=== PATIENT | female | born 1965 | race African-American/Black ===

== ENCOUNTER 2017-02-26 14:19 | Emergency (ER) | payer MEDICAID ==
[~2017-02-26] VITALS: Ht 170.2 cm; Wt 118.0 kg
[~2017-02-26 14:19] MED LIST: ALBU18HF2 IH; AMLO10TA80 PO; ASPI-518 PO; ATOR80TA76 PO; B50 PO; CINA30 PO; DOCU-138 PO; GABA-529 PO; HYDR-523 PO; HYDR100T26 PO; OMEP40CA34 PO; PREG50CA PO; RANI150T7 PO; SEVE800T PO; WARF1TAB46 PO
[2017-02-26] MEDS ORDERED: MAGNESIUM/ALUMINUM HYDROXIDE/SIMETHICONE 30ML UDC PO STA (15:12)
[2017-02-26] MEDS ORDERED: FAMOTIDINE 20MG TABLET PO STA (15:12)
[2017-02-26] MEDS ORDERED: KETOROLAC 30MG/ML VIAL IM ONE (15:15)
[2017-02-26] MEDS ORDERED: MORPHINE SULFATE 10 MG/ML CPJ IM ONE (15:15)
[2017-02-26 15:38] LABS: CHLORIDE 98 mEq/L (98-107)
[2017-02-26 15:39] LABS: BASOPHILS % 0.9 % (0.0-2.0); EOSINOPHILS % 3.8 % (0.0-5.0); HEMATOCRIT. 30.8 % (36.0-48.0); HEMOGLOBIN. 9.8 g/dL (12.0-16.0); LYMPHOCYTES % 16.8 % (20.0-50.0); MEAN CORPUSCULAR HEMOGLOBIN 21.8 pg (28.0-32.0); MEAN CORPUSCULAR VOLUME 68.7 fL (81.0-99.0); MONOCYTES % 8.9 % (2.0-8.0); NEUTROPHILS % 69.6 % (40.0-76.0); PLATELET 294 x1000/uL (130-400); RED BLOOD CELL COUNT 4.48 mill/uL (4.2-5.4); RED CELL DISTRIBUTION WIDTH 18.9 % (11.6-14.6)
[2017-02-26 15:40] LABS: INR 1.9; PROTHROMBIN TIME 19.3 sec
[2017-02-26 15:48] LABS: CARBON DIOXIDE 31 mEq/L (21-32)
[2017-02-26 15:50] LABS: HCG SCREEN NEGATIVE
[2017-02-26 15:51] LABS: TROPONIN I 0.06 ng/mL (0.00-0.04)
[2017-02-26 16:41] LABS: PLATELET ESTIMATE NORMAL
[2017-02-26] MEDS ORDERED: DIPHENHYDRAMINE 50MG/ML VIAL IV ONE ×2 (17:15→18:00)
[2017-02-26] MEDS ORDERED: LIDOCAINE HCL 1% 20ML VIAL (Pyxis) INJ ONE (17:51)
[2017-02-26] MEDS ORDERED: HEPARIN 1000 UNITS/ML 10ML ONE (17:51)
[2017-02-26] MEDS ORDERED: SODIUM BICARBONATE 4% (2.4MEQ) 5ML VIAL IV ONE (17:52)
[2017-02-26] MEDS ORDERED: DIPHENHYDRAMINE 50MG/ML VIAL ONE (18:04)
[2017-02-26] MEDS ORDERED: ONDANSETRON HCL 4MG/2ML VIAL IV ONE (19:00)
[2017-02-26] MEDS ORDERED: MORPHINE SULFATE 4 MG/ML CPJ (NOT FOR IM USE) IV ONE (19:00)
[2017-02-26 20:50] VITALS: BP 138/80
== END 2017-02-26 20:50 | disposition home or self-care (01) ==
LOC: ER 14:19
DX: R07.89 Other chest pain (principal); T80.90XA Unspecified complication following infusion and therapeutic injection, initial encounter; N18.6 End stage renal disease; I11.9 Hypertensive heart disease without heart failure; Z79.899 Other long term (current) drug therapy
CPT/HCPCS: 36415; 36580; 71010; 80053; 83690; 83880; 84443; 84484; 84703; 85025; 85610; 85730; 93005; 96372; 96374; 96375; 99285; C1752; J1200; J1644; J1885; J2270; J2405; J3490; Z7610

== ENCOUNTER 2017-06-23 23:41 | Inpatient (IN) | payer MEDICARE ==
[~2017-06-23] VITALS: Ht 171.4 cm; Wt 120.2 kg
[~2017-06-23 23:41] MED LIST changes: -AMLO10TA80 PO; +AMLO2.5T45 PO; -ASPI-518 PO; -ATOR80TA76 PO; -PREG50CA PO; -RANI150T7 PO; +REN800 PO; -SEVE800T PO
[2017-06-24] VITALS (13 sets, daily range): BP systolic 110–165; BP diastolic 58–109
[2017-06-24] MEDS ORDERED: ONDANSETRON HCL 4MG/2ML VIAL IV STA (00:13)
[2017-06-24] MEDS ORDERED: MORPHINE SULFATE 4 MG/ML CPJ (NOT FOR IM USE) IV STA (00:13)
[2017-06-24 00:34] LABS: HEMATOCRIT. 33.1 % (36.0-48.0); HEMOGLOBIN. 10.5 g/dL (12.0-16.0); MEAN CORPUSCULAR HEMOGLOBIN 20.9 pg (28.0-32.0); MEAN CORPUSCULAR VOLUME 66.1 fL (81.0-99.0); MEAN PLATELET VOLUME 9.5 fl (7.4-10.4); PLATELET 241 x1000/uL (130-400); RED BLOOD CELL COUNT 5.01 mill/uL (4.2-5.4); RED CELL DISTRIBUTION WIDTH 18.9 % (11.6-14.6)
[2017-06-24 00:41] LABS: INR 1.1; PARTIAL THROMBOPLASTIN TIME 26.6 sec (23.4-31.0)
[2017-06-24 00:44] LABS: CARBON DIOXIDE 25 mEq/L (21-32); CHLORIDE 100 mEq/L (98-107); TROPONIN I 0.04 ng/mL (0.00-0.04)
[2017-06-24 01:02] LABS: NUCLEATED RED BLOOD CELLS 2 /100 WBC; PLATELET ESTIMATE NORMAL
[2017-06-24] MEDS ORDERED: DIPHENHYDRAMINE 50MG/ML VIAL IV ONE ×3 (02:00→14:15)
[2017-06-24] MEDS ORDERED: ONDANSETRON HCL 4MG/2ML VIAL IV ONE (04:00)
[2017-06-24] MEDS ORDERED: MORPHINE SULFATE 4 MG/ML CPJ (NOT FOR IM USE) IV ONE (04:00)
[2017-06-24] MEDS ORDERED: AMLODIPINE 5MG TABLET PO SCH (09:15)
[2017-06-24] MEDS: DOCUSATE SODIUM 100MG CAPSULE PO SCH ×2 (09:15→16:09)
[2017-06-24] MEDS ORDERED: IPRATROPIUM/ALBUTEROL 0.5-3(2.5)MG/3ML NEB INH PRN (09:15)
[2017-06-24] MEDS ORDERED: DIPHENHYDRAMINE 50MG CAPSULE PO PRN (09:15)
[2017-06-24] MEDS ORDERED: HYDROCODONE/ACETAMINOPHEN 5/325MG TABLET PO PRN (09:15)
[2017-06-24] MEDS: CINACALCET HCL 60MG TABLET PO SCH ×2 (09:56→19:24)
[2017-06-24] MEDS: HYDROCODONE/APAP 7.5/325MG 1 TAB TABLET PO PRN ×2 (09:58→16:33)
[2017-06-24] MEDS ORDERED: SODIUM BICARBONATE 4% (2.4MEQ) 5ML VIAL IV ONE (12:59)
[2017-06-24] MEDS ORDERED: LIDOCAINE HCL 1% 20ML VIAL (Pyxis) INJ ONE ×2 (12:59→14:15)
[2017-06-24] MEDS ORDERED: CEFAZOLIN 1000MG PREMIX 50 ML IV ONE ×2 (12:59→13:00)
[2017-06-24] MEDS: HYDRALAZINE HCL 100MG TABLET PO SCH ×2 (13:09→21:36)
[2017-06-24] MEDS ORDERED: FENTANYL CITRATE/PF 50MCG/ML 2ML VIAL ONE (14:00)
[2017-06-24] MEDS ORDERED: DIPHENHYDRAMINE 50MG/ML VIAL ONE (14:09)
[2017-06-24] MEDS ORDERED: FENTANYL CITRATE/PF 50MCG/ML 2ML VIAL IV ONE (14:30)
[2017-06-24] MEDS ORDERED: IOHEXOL-300 50 ML BOTTLE IV ONE (14:36)
[2017-06-24] MEDS ORDERED: HEPARIN SODIUM 1,000 UNIT/1ML VIAL IV SCH (17:45)
[2017-06-24] MEDS ORDERED: SEVELAMER CARBONATE 800 MG TABLET PO SCH (17:50)
[2017-06-24] MEDS ORDERED: WARFARIN SODIUM 5MG TABLET PO SCH (18:00)
[2017-06-24 19:09] LABS: CREATINE KINASE MB FRACTION 1.2 ng/mL (0.5-3.6); TROPONIN I 0.04 ng/mL (0.00-0.04)
[2017-06-24] MEDS ORDERED: GABAPENTIN 300MG CAPSULE PO SCH (21:00)
[2017-06-25] MEDS ORDERED: SEVELAMER CARBONATE 800 MG TABLET PO SCH (13:30)
== END 2017-06-24 22:45 | disposition short-term general hospital (02) | DRG 167 ==
LOC: ER 23:52 → 6WST 06-24 03:37 → ENRESERV 06-24 04:11 → CANRESERV 06-24 04:11 → ENRESERV 06-24 04:38
PROVIDERS: ADMIT Internal Medicine; ATTEND Internal Medicine
PROC: 02HV33Z Insertion of Infusion Device into Superior Vena Cava, Percutaneous Approach (ICD-10-PCS; principal; 2017-06-24)
PROC: 02PY33Z Removal of Infusion Device from Great Vessel, Percutaneous Approach (ICD-10-PCS; principal; 2017-06-24)
DX: T82.41XA Breakdown (mechanical) of vascular dialysis catheter, initial encounter (principal); I13.2 Hypertensive heart and chronic kidney disease with heart failure and with stage 5 chronic kidney disease, or end stage renal disease; J96.10 Chronic respiratory failure, unspecified whether with hypoxia or hypercapnia; N18.6 End stage renal disease; E11.22 Type 2 diabetes mellitus with diabetic chronic kidney disease; F17.200 Nicotine dependence, unspecified, uncomplicated; I25.10 Atherosclerotic heart disease of native coronary artery without angina pectoris; E66.9 Obesity, unspecified; I27.82 Chronic pulmonary embolism; M19.90 Unspecified osteoarthritis, unspecified site; I50.9 Heart failure, unspecified; J44.9 Chronic obstructive pulmonary disease, unspecified; Y71.2 Prosthetic and other implants, materials and accessory cardiovascular devices associated with adverse incidents; Z82.49 Family history of ischemic heart disease and other diseases of the circulatory system; Z83.3 Family history of diabetes mellitus; Z90.81 Acquired absence of spleen; Z99.2 Dependence on renal dialysis; I25.2 Old myocardial infarction; Z79.01 Long term (current) use of anticoagulants
CPT/HCPCS: 36415; 36581; 71010; 75827; 76937; 77001; 80053; 82550; 82553; 83605; 84484; 85025; 85610; 85730; 93005; 96374; 96375; 99285; C1750; C1769; C1893; J0690; J1200; J1642; J1644; J2270; J2405; J3010; J3490; J7030; Q0163; Q9967

== ENCOUNTER 2017-11-01 14:08 | Emergency (ER) | payer MEDICARE ==
[~2017-11-01] VITALS: Ht 165.1 cm; Wt 110.0 kg
[~2017-11-01 14:08] MED LIST changes: -ALBU18HF2 IH
[2017-11-01 15:15] VITALS: BP 159/79
[2017-11-01] MEDS: TRAMADOL 50MG TABLET PO ONE ×2 (15:15→16:04)
== END 2017-11-01 17:16 | disposition home or self-care (01) ==
LOC: ER 14:08
DX: S40.211A Abrasion of right shoulder, initial encounter (principal); S80.212A Abrasion, left knee, initial encounter; S60.812A Abrasion of left wrist, initial encounter; F17.200 Nicotine dependence, unspecified, uncomplicated; J44.9 Chronic obstructive pulmonary disease, unspecified; Z86.718 Personal history of other venous thrombosis and embolism; Z79.01 Long term (current) use of anticoagulants; Z90.81 Acquired absence of spleen; W10.8XXA Fall (on) (from) other stairs and steps, initial encounter; Y93.89 Activity, other specified; Y92.018 Other place in single-family (private) house as the place of occurrence of the external cause
CPT/HCPCS: 29125; 73030; 73110; 73562; 99284

== ENCOUNTER 2017-12-05 14:08 | Emergency (ER) | payer MEDICARE ==
[~2017-12-05] VITALS: Ht 170.2 cm; Wt 100.0 kg
[2017-12-05 14:20] VITALS: BP 132/62
== END 2017-12-05 21:35 | disposition left against medical advice (07) ==
LOC: ER 14:21
DX: Z53.21 Procedure and treatment not carried out due to patient leaving prior to being seen by health care provider (principal)
CPT/HCPCS: 93005